=== PATIENT | female | born 1985 | race Caucasian/White ===

== ENCOUNTER → 2022-07-02 | Outpatient (CLI) | payer OTHER ==
--- NOTE | 2022-07-02 11:20 | XR ---
EXAMINATION TYPE: XR wrist complete RT DATE OF EXAM: 07/02/2022 CLINICAL HISTORY: Radial styloid tenosynovitis. Pain for one day. Repetitive work injury. TECHNIQUE: Frontal, lateral and oblique images of the right wrist are obtained. 4 view scaphoid vie w is performed. COMPARISON: None FINDINGS: There is no acute fracture/dislocation evident in the right wrist. The joint spaces in th e right wrist appear within normal limits. The overlying soft tissue appears unremarkable. IMPRESSION: Unremarkable study. Consider MRI follow-up to better evaluate tendons.
== END | disposition home or self-care (01) ==
LOC: RADXRMAIN 10:52
PROVIDERS: ATTEND Emergency Medicine
DX: M65.4 Radial styloid tenosynovitis [de Quervain] (principal)